=== PATIENT | male | born 1985 | race Caucasian/White ===

== ENCOUNTER 2023-08-10 11:21 | Emergency (ER) | payer OTHER ==
[~2023-08-10] VITALS: Ht 185.4 cm; Wt 112.3 kg
[~2023-08-10 11:21] MED LIST: ONDANSETRON ODT8 MG PO
--- OUTSIDE RECORDS SUMMARY | 2023-08-10 11:24 | XMS ---
PreManage Notification: DEN GILLESPIE Security Normalizer Events No recent Security Events currently on file CRITERIA MET - [facility] - [facility] - 2 Visits in 30 Days CARE PROVIDERS -, [facility] Dentist: Spinning Lathe Operator [facility] [place] PHONE: [phone] - [place]- Dentist: Spinning Lathe Operator [facility] PHONE: [phone] CENTER, [facility] Clinic/Center: [facility] ([facility]) PHONE: [phone] DANIEL JOHNSON Physician Tobacco Sample Puller Current PHONE: [phone] Scott has no Care Guidelines for this patient. Selena VISIT COUNT (12 MO.) 5 Ruth Soriano M[facility] (Paola Guevara) 1 ANTOLIN Borrero TOTAL 6 NOTE: Visits indicate total known visits. ED/UCC VISIT TRACKING (12 MO.) 08/10/2023 11:23 ANTOLIN Martinez [place] TYPE: Emergency COMPLAINT: - SUBSTANCE ABUSE 08/07/2023 19:00 [facility] Paola BRIGGS (Paola Guevara) TYPE: Emergency DIAGNOSES: - Alcohol abuse, uncomplicated - Alcohol Intoxication 07/17/2023 21:09 [facility] Paola BRIGGS (Paola Guevara) TYPE: Emergency DIAGNOSES: - Generalized anxiety disorder - Anxiety - Medication Side Effects 07/11/2023 12:11 [facility] Paola BRIGGS (Paola Guevara) TYPE: Emergency DIAGNOSES: - Alcohol dependence, uncomplicated - Alcohol Problem - alcohol withdrawl 12/17/2022 14:41 [facility] Paola BRIGGS (Paola Guevara) TYPE: Emergency DIAGNOSES: - Periapical abscess without sinus - dental pain 10/15/2022 16:07 [facility] Paola BRIGGS (Paola Guevara) TYPE: Emergency DIAGNOSES: - Periapical abscess without sinus - dental pain INPATIENT VISIT TRACKING (12 MO.) No inpatient visits to display in this time frame [email or web address]
[2023-08-10 11:58] LABS: BASOPHILS 0.4 % (0-2); EOSINOPHILS 3.9 % (0-6); HEMATOCRIT 47.8 % (35.0-50.0); HEMOGLOBIN 16.4 g/dL (12.0-18.0); LYMPHOCYTES 24.9 % (24-44); MCH 31.8 (27-36); MCHC 34.2 g/dl (30-36); MCV 92.9 fl (81-99); MONOCYTES 7.6 % (0-12); NEUTROPHILS 63.2 % (39-80); PLATELET COUNT 115 K/uL (140-440); RBC 5.15 M/ul (4.3-5.7); RDW 14.3 (10.5-15.0)
[2023-08-10] MEDS ORDERED: LORazepam 2 MG/ML VIAL IV ONE (12:00)
[2023-08-10] MEDS ORDERED: SODIUM CHLORIDE 0.9% 1,000 ML IV PRN (12:00)
[2023-08-10] MEDS ORDERED: THIAMINE HCL 200 MG/2 ML VIAL IV ONE (12:00)
[2023-08-10] MEDS ORDERED: MULTIVITAMINS THERAPEUTIC 1 EA TAB PO ONE (12:00)
[2023-08-10 12:08] LABS: ALBUMIN 3.6 g/dL (3.4-5.0); ALBUMIN/GLOBULIN RATIO 0.95 (1.1-2.4); ANION GAP 18.2 (7-21); BILIRUBIN, TOTAL 0.6 ng/dL (0.2-1.0); BUN/CREATININE RATIO 11.11 (6.0-28.6); CALCIUM 8.5 mg/dL (8.5-10.1); CREATININE, SERUM 0.54 mg/dL (0.70-1.30); MAGNESIUM 1.6 mg/dL (1.8-2.4); POTASSIUM 3.2 mmol/L (3.5-5.1); PROTEIN, TOTAL 7.4 g/dL (6.4-8.2)
[2023-08-10] MEDS ORDERED: MAGNESIUM SULFATE 2 GM/50 ML BAG IV ONE (12:30)
[2023-08-10 13:01] LABS: BILIRUBIN, URINE NEGATIVE (negative); BLOOD/HGB, URINE NEGATIVE (Negative); KETONE, URINE SMALL (Negative); LEUK ESTERASE, URINE NEGATIVE (negative); NITRITE, URINE NEGATIVE (negative); PH, URINE 8.5 (5-7)
[2023-08-10 13:06] LABS: BACTERIA, URINE RARE /hpf (negative); CASTS, URINE NONE SEEN \\lpf; COLLECTION TYPE, URINE CLEAN CATCH; CRYSTALS, URINE NONE SEEN (0-1+); EPITHELIAL CELLS, URINE SQUAMOUS 1+ /lpf (0-1+); RED BLOOD CELLS, URINE 0-1 /hpf (0-5); REFLEX CULTURE, URINE No (No); WHITE BLOOD CELLS, URINE 0-1 /HPF (0-5)
[2023-08-10 13:19] LABS: AMPHETAMINES, URINE NEGATIVE (NEGATIVE); BARBITURATES, URINE NEGATIVE (NEGATIVE); BENZODIAZEPINE, URINE NEGATIVE (NEGATIVE); BUPRENORPHINE, URINE NEGATIVE (NEGATIVE); CANNABINOID, URINE NEGATIVE (NEGATIVE); COCAINE, URINE NEGATIVE (NEGATIVE); ECSTASY, URINE NEGATIVE (NEGATIVE); FENTANYL, URINE NEGATIVE (NEGATIVE); METHADONE, URINE NEGATIVE (NEGATIVE); OPIATES, URINE NEGATIVE (NEGATIVE); OXYCODONE, URINE NEGATIVE (NEGATIVE); PHENCYCLIDINE, URINE NEGATIVE (NEGATIVE)
[2023-08-10] MEDS ORDERED: CHLORDIAZEPOXID25 MG PO (13:25)
[2023-08-10 13:44] VITALS: BP 158/103
== END 2023-08-10 13:52 | disposition home or self-care (01) ==
LOC: ED 11:21
PROVIDERS: Emergency Medicine
DX: F10.129 Alcohol abuse with intoxication, unspecified (principal); F13.239 Sedative, hypnotic or anxiolytic dependence with withdrawal, unspecified; Y90.8 Blood alcohol level of 240 mg/100 ml or more
CPT/HCPCS: 36415; 80053; 80307; 81001; 83690; 83735; 85025; 96374; 96375; 99284; G0480; J2060; J3411; J3475; J7030

== ENCOUNTER 2023-12-07 01:17 | Emergency (ER) | payer OTHER ==
[~2023-12-07] VITALS: Ht 185.4 cm; Wt 118.0 kg
[~2023-12-07 01:17] MED LIST changes: +CHLORDIAZEPOXID25 MG PO
--- OUTSIDE RECORDS SUMMARY | 2023-12-07 01:24 | XMS ---
PreManage Notification: DEN GILLESPIE Security Cnc Machine Operator Events No recent Security Events currently on file CRITERIA MET - 6 ED Visits in 6 Months CARE PROVIDERS -, [facility] Dentist: Securities Lending Trader [facility] PHONE: [phone] - [facility]- Dentist: Securities Lending Trader [facility] PHONE: [phone] [facility]/Center: [facility] ([facility]) PHONE: [phone] DANIEL JOHNSON Physician Business Risk Consultant Current PHONE: [phone] Scott has no Care Guidelines for this patient. Selena VISIT COUNT (12 MO.) 5 Ruth Soriano [facility] (Paola Guevara) 2 ANTOLIN Saenz [facility] ([facility] TOTAL 8 NOTE: Visits indicate total known visits. ED/UCC VISIT TRACKING (12 MO.) 12/07/2023 01:18 ANTOLIN Martinez [place] TYPE: Emergency COMPLAINT: - MEDICAL CLEARANCE 10/17/2023 21:18 [facility] Amanuel BRIGGS ([facility]) TYPE: Emergency DIAGNOSES: - Alcohol abuse, uncomplicated - Alcohol Intoxication - ETOH INTOX [facility]23 [facility] Emergency DIAGNOSES: - Alcohol use, unspecified with withdrawal, uncomplicated - panick attack - Withdrawal (Alcohol) [facility] [place] [facility] COMPLAINT: - SUBSTANCE ABUSE DIAGNOSES: - Alcohol abuse with intoxication, unspecified - Alcohol dependence with withdrawal, unspecified - Blood alcohol level of 240 mg/100 ml or more - Sedative, hypnotic or anxiolytic dependence with withdrawal, unspecified 08/07/2023 19:00 [facility] Paola BRIGGS ([place]) TYPE: Emergency DIAGNOSES: - Alcohol abuse, uncomplicated - Alcohol Intoxication 07/17/2023 21:09 [facility] Paola BRIGGS ([place]) TYPE: Emergency DIAGNOSES: - Generalized anxiety disorder - Anxiety - Medication Side Effects 07/11/2023 12:11 [facility] Paola BRIGGS ([place]) TYPE: Emergency DIAGNOSES: - Alcohol dependence, uncomplicated - Alcohol Problem - alcohol withdrawl 12/17/2022 14:41 [facility] Paola BRIGGS ([place]) TYPE: Emergency DIAGNOSES: - Periapical abscess without sinus - dental pain INPATIENT VISIT TRACKING (12 MO.) 08/10/2023 20:57 [facility] Paola BRIGGS (Paola Guevara) TYPE: Intensive Care DIAGNOSES: - Abnormal levels of other serum enzymes - Alcohol use, unspecified with withdrawal, uncomplicated - Generalized anxiety disorder [id number]
[2023-12-07] MEDS ORDERED: HYDROXYZINE PAM25 MG (01:36)
[2023-12-07] MEDS ORDERED: ESCITALOPRAM OX20 MG (01:36)
[2023-12-07] MEDS ORDERED: HALOPERIDOL LACTATE 5 MG/ML VIAL IM ONE (02:00)
[2023-12-07] MEDS ORDERED: diphenhydrAMINE HCL 50 MG/ML VIAL IM ONE (02:00)
[2023-12-07] MEDS ORDERED: LORazepam 2 MG/ML VIAL IM ONE ×2 (02:00→02:15)
[2023-12-07 03:03] LABS: BASOPHILS 0.6 % (0-2); EOSINOPHILS 0.7 % (0-6); HEMATOCRIT 46.2 % (35.0-50.0); MCH 32.2 (27-36); MCHC 34.7 g/dl (30-36); MCV 92.9 fl (81-99); MONOCYTES 7.2 % (0-12); NEUTROPHILS 60.5 % (39-80); PLATELET COUNT 246 K/uL (140-440); RBC 4.98 M/ul (4.3-5.7); RDW 13.6 (10.5-15.0)
[2023-12-07 03:28] LABS: ACETAMINOPHEN 0 ug/mL (10-30); ALBUMIN 3.7 g/dL (3.4-5.0); ALBUMIN/GLOBULIN RATIO 0.95 (1.1-2.4); ALCOHOL, MEDICAL 251 ng/dL (<3); ALKALINE PHOSPHATASE 77 U/L (46-116); ALT (SGPT) 26 U/L (14-59); ANION GAP 13.6 (7-21); AST (SGOT) 17 U/L (15-37); BILIRUBIN, TOTAL 0.3 ng/dL (0.2-1.0); BUN/CREATININE RATIO 13.63 (6.0-28.6); CALCIUM 8.8 mg/dL (8.5-10.1); CARBON DIOXIDE 27 mmol/L (21-32); CHLORIDE 104 mmol/L (98-107); CREATININE, SERUM 0.66 mg/dL (0.70-1.30); GLOMERULAR FILTRATION RATE,EST 125 mL/min (>60); POTASSIUM 3.6 mmol/L (3.5-5.1); PROTEIN, TOTAL 7.6 g/dL (6.4-8.2); SALICYLATE 4.3 mg/dL (2.8-20.0); TSH, 3RD GENERATION 3.535 uIU/mL (0.358-3.740); UREA NITROGEN 9 mg/dL (7-18)
[2023-12-07] MEDS ORDERED: CHLORDIAZEPOXIDE 25 MG CAP PO PRN (06:15)
[2023-12-07 10:19] VITALS: BP 137/74
== END 2023-12-07 10:25 | disposition home or self-care (01) ==
LOC: ED 01:17
PROVIDERS: Internal Medicine
DX: R45.851 Suicidal ideations (principal); F10.129 Alcohol abuse with intoxication, unspecified; K21.9 Gastro-esophageal reflux disease without esophagitis; F17.200 Nicotine dependence, unspecified, uncomplicated; Z79.899 Other long term (current) drug therapy
CPT/HCPCS: 36415; 80053; 80307; 84443; 85025; 96372; 99284-25; G0480; J1200; J1630; J2060